=== PATIENT | female | born 1980 | race Hispanic/Latino ===

== ENCOUNTER → 2025-05-10 | Day surgery (SDC) | payer OTHER ==
[~2025-05-10] MED LIST: ATORVASTATIN CA20 MG PO; CRESTOR40 MG PO; FAMOTIDINE20 MG PO; FENTANYL CITRATE/PF 100MCG/2 ML INJ ONE; LIDOCAINE HCL 2% LOCAL INJ 5 ML SDV VIAL INJ ONE; PROPOFOL IV EMULSION 10 MG/ML 20 ML VIAL ONE; TRAZODONE HCL50 MG PO; TYLENOL325 MG PO
[2025-05-10] MEDS: LACTATED RINGER'S 1,000 ML ONE (06:11)
[2025-05-10 07:30] VITALS: TEMP 97.8
[2025-05-10 08:00] VITALS: BP 101/71; PULSE 74; RESP 16; O2SAT 99
== END | disposition home or self-care (01) ==
LOC: ENDO 05:47
PROVIDERS: ATTEND Internal Medicine Gastroenterology
DX: K22.2 Esophageal obstruction (principal); K21.00 Gastro-esophageal reflux disease with esophagitis, without bleeding; K29.50 Unspecified chronic gastritis without bleeding; B96.81 Helicobacter pylori [H. pylori] as the cause of diseases classified elsewhere; R13.19 Other dysphagia; J45.909 Unspecified asthma, uncomplicated; F17.290 Nicotine dependence, other tobacco product, uncomplicated; E89.0 Postprocedural hypothyroidism; Z85.850 Personal history of malignant neoplasm of thyroid; M54.2 Cervicalgia; Z71.3 Dietary counseling and surveillance; Z68.31 Body mass index [BMI] 31.0-31.9, adult; Z79.899 Other long term (current) drug therapy
CPT/HCPCS: 43239; 43450; 81025; J2003; J2470; J2704; J3010; J7121